=== PATIENT | female | born 2000 | race Caucasian/White ===

== ENCOUNTER 2020-10-11 10:11 | Outpatient (CLI) | payer OTHER, SELFPAY ==
[2020-10-11 11:04] LABS: Glucose Fasting Gestational 80 mg/dL (>/=95)
[2020-10-11 12:46] LABS: Glucose 1 Hour Gest 141 mg/dL (>/=180)
[2020-10-11 13:41] LABS: Glucose 2 Hour Gest 122 mg/dL (>/= 155)
[2020-10-11 14:40] LABS: Glucose 3 Hour Gest 99 mg/dL (>/=140)
== END 2020-10-11 10:12 | disposition home or self-care (01) ==
LOC: ANHLAB 10:17
PROVIDERS: Visit Provider Obstetrics & Gynecology
DX: Z13.1 Encounter for screening for diabetes mellitus (principal)
CPT/HCPCS: 36415; 82951; 82952

== ENCOUNTER 2020-12-09 09:35 | Outpatient (RCR) | payer OTHER, SELFPAY ==
[2020-12-03 15:19] VITALS: BP 106/66; PULSE 71
--- NOTE | ~2020-12-09 | US_ITS ---
EXAMINATION: US OB BPP wo non-stress DATE: 12/09/2020 10:54 INDICATION: Small for gestational age, third trimester TECHNIQUE: Real-time pelvic ultrasound was performed. The interpreting radiologist was not present fo r the study. COMPARISON: 12/03/2020 FINDINGS: There is a single living fetus in vertex presentation. The placenta is posterior. heart rate is 143 beats per minute (bpm). Biophysical profile performed by the technologist: breathing (30 sec sustained breathing in 30 minutes): 2 out of 2 movement (3 gross body movements in 30 minutes): 2 out of 2 tone (one episode of ilhdyvb-rwnfmwnck-ygztxvj limb movement): 2 out of 2 Amniotic fluid pocket (2 cm): 2 out of 2 Total score: 8 out of 8 IMPRESSION: 1. Single living fetus in vertex presentation. 2. Biophysical profile 8 out of 8. Reviewed, dictated and finalized at location A. LING STRATEGIST
--- NOTE | ~2020-12-09 | US_ITS ---
EXAMINATION: US OB limited w BPP DATE: 12/03/2020 15:05 CONTOUR BAND SAW OPERATOR VERTICAL INDICATION: Variable decelerations. Small for gestational age. TECHNIQUE: Real-time transabdominal obstetric ultrasound. FINDINGS: No prior studies for comparison. There is a single living fetus in vertex presentation. The placenta is posterior without placenta pr evia. cardiac activity and movement is noted with a heart rate of 146 beats per minute. A FI is normal measuring 17.2 cm (normal range for gestational age is 7.5-24.4 cm). Biophysical profile: breathin of 2 movement: 2 of 2 tone: 2 of 2 Amniotic flud pocket: 2 of 2 Total score: 8 of 8 IMPRESSION: 1. Single living intrauterine in vertex presentation. 2: Total biophysical profile score of 8/8. 3: Normal ARNOLD measures 17.2 cm. Reviewed, dictated and finalized at location A. OUR BAND SAW OPERATOR VERTICAL
[2020-12-09 10:27] VITALS: BP 113/72; PULSE 79
== END 2020-12-12 07:58 | disposition home or self-care (01) ==
LOC: ANHOBOP 09:35
PROVIDERS: Visit Provider Obstetrics & Gynecology
DX: O36.5930 Maternal care for other known or suspected poor fetal growth, third trimester, not applicable or unspecified (principal); Z3A.37 37 weeks gestation of pregnancy; Z3A.38 38 weeks gestation of pregnancy
CPT/HCPCS: 59025; 76815; 76819

== ENCOUNTER 2020-12-10 16:04 | Inpatient (IN) | payer OTHER, SELFPAY ==
[2020-12-10] VITALS (13 sets, daily range): BP systolic 99–125; BP diastolic 57–79; PULSE 67–81; TEMP 36.6; BMI 29.9
[2020-12-10 17:02] LABS: Basophils Absolute Auto 0.1 K/mm3 (0.0-0.1); Basophils Percent Auto 0.5 % (0.2-1.2); Eosinophils Absolute Auto 0.1 K/mm3 (0-0.3); Eosinophils Percent Auto 0.8 % (0-4.4); Hematocrit 36.1 % (37.0-47.0); Hemoglobin 11.6 g/dL (12.0-15.0); Immature Granulocyte Absolute 0.08 K/mm3 (0.00-0.031); Immature Granulocyte Percent A 0.8 % (0-0.5); Lymphocytes Absolute Auto 2.04 K/mm3 (0.9-3.2); Lymphocytes Percent Auto 19.2 % (18.3-44.2); Mean Corpuscular HGB Conc 32.1 g/dl (32-36); Mean Corpuscular Hemoglobin 28.6 pg (26-34); Mean Corpuscular Volume 89.1 fl (80-100); Mean Platelet Volume 10.4 fl (7.4-10.4); Monocytes Absolute Auto 0.7 K/mm3 (0.1-0.6); Monocytes Percent Auto 6.6 % (2.6-8.5); Neutrophils Absolute Auto 7.7 K/mm3 (1.3-6.7); Neutrophils Percent Auto 72.1 % (45.5-73.1); Platelet Count Result 245 k/mm3 (150-375); Red Blood Count 4.05 M/mm3 (4.2-5.4); Red Cell Distribution Width 12.9 % (11.5-14.5); White Blood Count 10.6 K/mm3 (4.5-10.0)
--- NOTE | 2020-12-10 17:10 | PM.IMHP ---
H&P: HPI History of Present Illness Date/Time: 12/10/20 17:10 Chief Complaint: induction of labor Narrative: Suzie Pinedo is a 20 yo @ 38.2wks (EVANS 12/[birth year]) who was admitted to L&D for induction of labor due to IUGR <10%ile. She has had regular and reassuring testing. She has had regular care. She reports good movement. No vaginal bleeding, contractions or leakage of fluid. complicated by: - IUGR <10%ile - HSV on ppx; no lesions noted - Elevated glucola; normal 3hr OGTT - Mild anemia on iron Review of Systems Constitutional: Constitutional: Denies chills and Denies fever(s) Eyes: Eyes: Denies change in vision Cardiovascular: Cardiovascular: Denies chest pain and Denies rapid heart rate Respiratory: Respiratory: Denies cough and Denies dyspnea Gastrointestinal: Gastrointestinal: Denies nausea and Denies vomiting Genitourinary: Genitourinary: Denies genital lesions and Denies vaginal discharge Neurologic: Denies headache(s) Psychiatric: Psychiatric: Denies anxiety and Denies depression [facility] Family History Family History Sibling Heart disease Asthma Mother Asthma Grandparent Cleft palate Social History Social History Smoking status: Never smoker Substance use: never Spiritual care concerns: No Meds Home Medications and Allergies Home Medications Medication Instructions Recorded Confirmed Type ferrous sulfate 12/03/20 History prenat.vits,juliann,vcq-pkwa-kdkqk 1 tablet PO DAILY 12/03/20 12/03/20 History [ #2] valacyclovir 500 mg PO Q12H 12/03/20 12/03/20 History Allergies Allergy/AdvReac Type Severity Reaction Status Date / Time amoxicillin Allergy Hives Verified 12/10/20 16:40 Penicillins Allergy Hives Verified 12/10/20 16:40 sulfamethoxazole Allergy Hives Verified 12/10/20 16:40 [From Bactrim] trimethoprim [From Bactrim] Allergy Hives Verified 12/10/20 16:40 Vital Signs Vital Signs - 24 hr 12/10/20 16:39 12/10/20 16:40 Pulse Rate 77 77 Blood Pressure 123/72 123/72 Exam Const: General: cooperative, healthy appearing, comfortable and no acute distress Resp: Effort & Inspection: normal respiratory effort and able to speak in complete sentences Cardio: Rate: regular rate GI: GI Palp: Yes Soft to palpation : Other: FHT's:120's/ mod allen/ + accels/ no decels - cat 1 TOCO: no ctx's noted Cervix: 3/80/-3 Membranes: intact Postion: cephalic Skin: General skin exam: normal color Neuro: General: patient oriented x3 Extrem: General: normal to inspection Psych: Appearance: grossly normal Affect: normal affect Attitude: cooperative H&P: Results Labs Labs: Short CBC 12/10/20 Range/Units 16:53 WBC 10.6 H (4.5-10.0) K/mm3 Hgb 11.6 L (12.0-15.0) g/dL Hct 36.1 L (37.0-47.0) % Plt Count 245 (150-375) k/mm3 Assessment and Plan Assessment and plan (1) IUGR (intrauterine growth restriction): Status: Acute (2) Encounter for induction of labor: Code(s): Z34.90 - Encounter for supervision of normal , unspecified, unspecified trimester Status: Acute Additional Plan - Admit to L&D for cervidil induction of labor due to IUGR - Continuous monitoring; FHTs cat 1 - Labs/US reviewed; GBS negative - Anesthesia consult PRN pain
--- NOTE | 2020-12-10 17:26 | WPDHPUPDATE1 ---
History and Physical Update Update Date/Time: 12/10/20 17:26 History and Physical has been reviewed, including an updated exam of the patient. There are NO changes in the patient's condition. Risks, benefits, and alternatives have been discussed and questions answered. Patient agrees to proceed with procedure.
[2020-12-10] MEDS: DINOPROSTONE 10 MG VAG INSERT VAGINAL (18:41)
--- NOTE | 2020-12-10 19:14 | WPDANESEPP ---
Anes - Eval Pre Procedure Procedure: labor epidural Date/Time: 12/10/20 19:14 Surgeon: eleni Preop Diagnosis: Abd pain with contractions Pre Op Diagnosis: Induction of Labor Patient Data Age: 20 Gender: F Height: 5 ft 9 in Weight: 92 kg Last Vital Signs Pulse 75 12/10/20 19:00 BP 104/65 12/10/20 19:00 Allergies Allergy/AdvReac Type Severity Reaction Status Date / Time amoxicillin Allergy Hives Verified 12/10/20 16:40 Penicillins Allergy Hives Verified 12/10/20 16:40 sulfamethoxazole Allergy Hives Verified 12/10/20 16:40 [From Bactrim] trimethoprim [From Bactrim] Allergy Hives Verified 12/10/20 16:40 Home Medications Medication Instructions Recorded Confirmed Type ferrous sulfate 12/03/20 History prenat.vits,juliann,zxp-ftcg-ojfhr 1 tablet PO DAILY 12/03/20 12/03/20 History [ #2] valacyclovir 500 mg PO Q12H 12/03/20 12/03/20 History Laboratory Tests 12/10/20 12/10/20 12/10/20 16:53 16:53 16:54 WBC 10.6 K/mm3 H K/mm3 (4.5-10.0) RBC 4.05 M/mm3 L M/mm3 (4.2-5.4) Hgb 11.6 g/dL L g/dL (12.0-15.0) Hct 36.1 % L % (37.0-47.0) MCV 89.1 fl fl (80-100) MCH 28.6 pg pg (26-34) MCHC 32.1 g/dl g/dl (32-36) RDW 12.9 % % (11.5-14.5) Plt Count 245 k/mm3 k/mm3 (150-375) MPV 10.4 fl fl (7.4-10.4) Immature Gran % (Auto) 0.8 % H % (0-0.5) Neut % (Auto) 72.1 % % (45.5-73.1) Lymph % (Auto) 19.2 % % (18.3-44.2) [place] % (Auto) 6.6 % % (2.6-8.5) Eos % (Auto) 0.8 % % (0-4.4) Baso % (Auto) 0.5 % % (0.2-1.2) Lymph # (Auto) 2.04 K/mm3 K/mm3 (0.9-3.2) [place] # (Auto) 0.7 K/mm3 H K/mm3 (0.1-0.6) Eos # (Auto) 0.1 K/mm3 K/mm3 (0-0.3) Baso # (Auto) 0.1 K/mm3 K/mm3 (0.0-0.1) Abs Immat Gran (auto) 0.08 K/mm3 H K/mm3 (0.00-0.031) Absolute Neuts (auto) 7.7 K/mm3 H K/mm3 (1.3-6.7) Absolute Nucleated RBC 0.0 K/mm3 K/mm3 (0.0-0.012) Nucleated RBC % 0.0 % % (0.0-0.2) RPR Pending Blood Type Pending Antibody Screen Pending Patient hx anesthesia problems: none Family hx anesthesia problems: none [facility] Past Medical History Medical History Anemia Anxiety and depression HSV infection Over weight Family History Family History Sibling Heart disease Asthma Mother Asthma Grandparent Cleft palate Social History Social History Smoking status: Never smoker Substance use: never Spiritual care concerns: No Exam Day of Procedure 12/10/20 19:14 Patient weight: overweight Airway: Mallampati scale class II Neurological: alert and oriented
[2020-12-10] MEDS: ACETAMINOPHEN 500 MG TABLET 1000 MG PO (23:55)
[2020-12-11] VITALS (119 sets, daily range): BP systolic 95–152; BP diastolic 45–103; PULSE 43–100; RESP 14–18; TEMP 36.1–37.5; O2SAT 92–100
--- NOTE | 2020-12-11 07:34 | PM.OBPNLAB ---
Pain Control Date/time seen: 12/11/20 07:34 Pain control: tolerating well Pelvic Exam Dilation (cm): 4 Effacement (%): 80 station: -2 Amniotic membrane status: Ruptured (AROM, clear 0730) Contractions Monitor mode: External Contraction pattern: Irregular Status status: Category l Comments: 130's/mod allen/ + accels/ no decels Assessment and Plan Assessment: induction ongoing Comments: - AROM, clear this exam @ 0730 - start pitocin augmentation - continuous monitoring; currently reassuring - anesthesia consult PRN pain
[2020-12-11] MEDS: OXYTOCIN 30 UNITS/NS 500 ML 30 UNITS/500 ML BAG 6 UNITS IV CONT (08:26)
[2020-12-11] MEDS: LACTATED RINGERS 1,000 ML 125 ML IV CONT ×2 (08:26→10:04)
--- NOTE | 2020-12-11 11:52 | SUR.OPER ---
1150- Vacuum on with pop off 1151- Vacuum reapplied with pop off 1151- Vacuum reapplied with pop off 1152- Vacuum reapplied and delivered.
[2020-12-11] MEDS: LACTATED RINGERS 1,000 ML 999 ML IV CONT (12:00)
[2020-12-11 12:08] LABS: Rapid Plasma Reagin Non-Reactive (NonReactive)
[2020-12-11] MEDS: CLINDAMYCIN 900 MG/D5W 50 ML 900 MG/50 ML PIGGYBACK 50 MG IVPB (12:09)
[2020-12-11] MEDS: GENTAMICIN SULFATE INJ 460 MG in DEXTROSE 5% 100 ML 100 MG IVPB (12:22)
--- NOTE | 2020-12-11 12:56 | PM.OBPRVD ---
OB - Delivery Note Procedure Delivery date: 12/11/20 Procedure: Procedures Operation Date: 12/11/20 11:30 <No data on this case meets the specified criteria> events: Labor Induction (due to IUGR) Intrapartal events: Extended Bradycardia Induction method: per pitocin protocol Delivery augmentation: rupture of membranes and pitocin Delivery monitor: external FHT and external uterine Route of delivery: Quantitative Blood Loss (ml): 240 Anesthesia type: Epidural Disposition: PACU Narrative: bradycardia was noted to the 60's for ~10 minutes when she was called stat c/s and returned to 90's for 3-4minutes. heart tones were obtained in the OR and were in the 110's. Gentamicin and clindamycin were ordered while epidural anesthesia was noted to be adequate. She was then prepped and draped in the normal sterile fashion. A time out was performed. A Pfannenstiel incision was made in the skin and carried down to the underlying fascia. The fascia was nicked on either side of the midline and the fascial incision was extended laterally and superiorly. The fascia was then elevated and the underlying rectus muscles were dissected off the fascia, superiorly. The rectus muscles were then in the midline and the peritoneum was entered bluntly. Once adequate exposure was obtained, a bladder blade and rich was placed within the abdomen. A low transverse incision was made on the lower uterine segment and clear fluid was noted. The occiput was attempted to be brought to the hysterotomy but was hard to flex. Kiwi vacuum was placed; 3 pop offs were noted but the head was then delivered, nuchal was reduced. The shoulder and body then followed without complications. The fetus had good tone. The cord was clamped and cut and the fetus was handed off to the awaiting pediatric nurse where spontaneous cry was heard. A segment of the cord was collected for cord gases. The remaining cord blood was collected for typing. With pitocin infusing, the placenta delivered with gentle traction on the cord without complications. The uterus was exteriorized and a clean lap was placed over it. The uterus was then cleared out of all clots and debris using a clean, moist lap. The hysterotomy was then repaired in a running, interlocking fashion using 0 Vicryl. A second layer imbricating suture was then made using 0 Vicryl. The hysterotomy was found to be hemostatic and good uterine tone was noted. The bilateral adnexa were examined and the right ovary was found to have a small cyst. The pelvis was cleared of all clots and fluid. The retractors were removed from the abdomen. The peritoneum, muscle, and fascia were examined and made hemostatic with bovie cautery. The fascia was then repaired using a 0 Vicryl suture in a running fashion. The subcutaneous tissue was then irrigated and made hemostatic with bovie cautery. The subcutaneous tissue was then reapproximated using 2-0 Vicryl. The skin was then closed using 4-0 Monocryl in a running subcuticular fashion and a clean, dry dressing was placed over. Sponge, lap, needle and instrument counts were correct at the end of the procedure x2. The patient tolerated the procedure well and was taken to recovery in a stable condition. Baby Date of : 12/11/20 Time of : 11:52 Weeks of gestation at delivery: 38 Infant gender: Male Weight (pounds): 6 Weight (ounces): 2 presentation: vertex position: Left Occiput Posterior Placenta delivery description: Expressed cord vessel description: 3 Vessels, Nuchal Cord and Loose score one minute: 7 score five minutes: 8
[2020-12-11] MEDS: OXYTOCIN 30 UNITS/NS 500 ML 30 UNITS/500 ML BAG 125 UNITS IV CONT (13:22)
[2020-12-11] MEDS: fentaNYL CITRATE INJ (*CRX) 100 MCG/2 ML VIAL 25 MCG IV PUSH (14:52)
--- NOTE | 2020-12-11 15:05 | PC.NURSE ---
PT arrived on unit via stretcher accompanied by fob and infant and taken to room 281. PT oriented to room and surrounding area. PT introductions made and plan of care discussed per post op c section, pain management, breast feeding daily care activities. PT transferred to bed via maxi air without difficulty. Welcome packet reviewed and discussed. PT verbalized understanding of such care.
[2020-12-11] MEDS: ACETAMINOPHEN 325 MG TABLET 650 MG PO (16:17)
[2020-12-11] MEDS: LANOLIN (LANSINOH) 7.5 GM CREAM 1 APPLIC TOPICAL (16:17)
[2020-12-11] MEDS: DOCUSATE SODIUM 100 MG CAPSULE PO (16:18)
[2020-12-11] MEDS: KETOROLAC 30 MG/ML VIAL (*BKC) IV PUSH ×2 (16:18→22:18)
[2020-12-11] MEDS: TETANUS,DIPHTHERIA,AC PERTUSSIS ADULT (0.5 ML) BOOSTRIX IM (22:41)
[2020-12-12] MEDS: KETOROLAC 30 MG/ML VIAL (*BKC) IV PUSH (04:12)
[2020-12-12] MEDS: SIMETHICONE 80 MG TAB.CHEW PO ×4 (04:14→23:00)
[2020-12-12 04:25] VITALS: BP 116/69; PULSE 85; RESP 16; TEMP 37.1; O2SAT 96
[2020-12-12 05:00] LABS: Basophils Percent Auto 0.3 % (0.2-1.2); Eosinophils Absolute Auto 0.1 K/mm3 (0-0.3); Eosinophils Percent Auto 0.4 % (0-4.4); Hematocrit 32.1 % (37.0-47.0); Hemoglobin 10.4 g/dL (12.0-15.0); Immature Granulocyte Absolute 0.11 K/mm3 (0.00-0.031); Immature Granulocyte Percent A 0.7 % (0-0.5); Lymphocytes Absolute Auto 1.81 K/mm3 (0.9-3.2); Lymphocytes Percent Auto 11.5 % (18.3-44.2); Mean Corpuscular HGB Conc 32.4 g/dl (32-36); Mean Corpuscular Hemoglobin 28.3 pg (26-34); Mean Corpuscular Volume 87.5 fl (80-100); Mean Platelet Volume 10.6 fl (7.4-10.4); Monocytes Percent Auto 6.2 % (2.6-8.5); Neutrophils Absolute Auto 12.8 K/mm3 (1.3-6.7); Neutrophils Percent Auto 80.9 % (45.5-73.1); Platelet Count Result 209 k/mm3 (150-375); Red Blood Count 3.67 M/mm3 (4.2-5.4); Red Cell Distribution Width 12.8 % (11.5-14.5); White Blood Count 15.8 K/mm3 (4.5-10.0)
--- NOTE | 2020-12-12 08:30 | PC.NURSE ---
PT introductions made and plan of care discussed per post op c section, pain management, breast feeding, daily care activities. PT verbalized understanding of such care.
[2020-12-12 08:45] VITALS: BP 104/70; PULSE 83; RESP 18; TEMP 36.6; O2SAT 97
--- NOTE | 2020-12-12 09:27 | WPDANLDPN2 ---
Anes-Prog Note L&D Date/Time: 12/12/20 09:27 Comfortable throughout: labor and section Neuraxial method: epidural Epidural/Spinal procedure site: clean & non-tender Neuro status: Neuro function grossly intact. Cardiovascular status: normal Respiratory status: normal Airway patency: baseline Mental status: baseline Post-Op hydration status: normal Vital Signs: Last Vital Signs Temp 37.1 C 12/12/20 04:25 Pulse 85 12/12/20 04:25 Resp 16 12/12/20 04:25 BP 116/69 12/12/20 04:25 Pulse Ox 96 12/12/20 04:25 Pain score (VAS): 4 I/O: Intake & Output 12/11/20 12/12/20 12/12/20 23:59 07:59 15:59 Intake Total 1840 Output Total 1000 1800 Balance -1000 40 Post-procedural complaints: none Patient feedback: Patient satisfied with anesthetic care.
--- NOTE | 2020-12-12 09:29 | WPDANLDNPN2 ---
Anes-Prog Note L&D-Neuraxial Date/Time: 12/12/20 09:29 Neuraxial medications: epidural PF morphine Opiod-related complaints: none Patient feedback: Patient satisfied with post-operative pain management.
[2020-12-12] MEDS: DOCUSATE SODIUM 100 MG CAPSULE PO ×2 (09:41→16:54)
[2020-12-12] MEDS: ACETAMINOPHEN 325 MG TABLET 650 MG PO ×2 (09:41→16:55)
[2020-12-12] MEDS: MULTIVIT/MIN/PREN/FOL AC/IRON TABLET 1 TAB PO (09:41)
[2020-12-12] MEDS: IBUPROFEN 600 MG TABLET PO ×3 (09:45→23:00)
--- NOTE | 2020-12-12 12:35 | PM.OBPNVD ---
OB - PN: Subj Subjective Date/time seen: 12/12/20 12:32 POD#1 Suzie reports doing well today. She states her pain is well controlled. Her bleeding is light. She has tolerating regular diet. She has voided and passed gas. She has ambulated. She is breast feeding. She would like her son circumcised. She denies CP, MARTINEZ, fever, chills, N/V, SOB, dizziness or palpitations. OB - PN: Obj Data Labs CBC & Chem 7: 12/12/20 04:11 Labs: Laboratory Results - last 24 hr 12/12/20 04:11 WBC 15.8 H RBC 3.67 L Hgb 10.4 L Hct 32.1 L MCV 87.5 MCH 28.3 MCHC 32.4 RDW 12.8 Plt Count 209 MPV 10.6 H Immature Gran % (Auto) 0.7 H Neut % (Auto) 80.9 H Lymph % (Auto) 11.5 L [place] % (Auto) 6.2 Eos % (Auto) 0.4 Baso % (Auto) 0.3 Lymph # (Auto) 1.81 [place] # (Auto) 1.0 H Eos # (Auto) 0.1 Baso # (Auto) 0.0 Abs Immat Gran (auto) 0.11 H Absolute Neuts (auto) 12.8 H Absolute Nucleated RBC 0.0 Nucleated RBC % 0.0 OB - PN A/P Assessment and Plan (1) bradycardia during labor: Status: Acute (2) S/P section: Code(s): Z98.891 - History of uterine scar from previous surgery Status: Acute Plan day: 1 Plan: routine care Comments: - plan to circumcision tomorrow - meeting all post-op milestones - possible discharge home tomorrow Time Spent With Patient Time: Total time spent is greater than 50% in coordination of care (as documented) at patient's floor/unit and/or counseling patient: Review of Systems Review of Systems: All systems reviewed & are unremarkable except as noted in HPI and below (HPI) Exam Const: General: cooperative, healthy appearing, comfortable and no acute distress Resp: Effort & Inspection: normal respiratory effort and able to speak in complete sentences Auscultation: clear to auscultation bilaterally Cardio: Rate: regular rate GI: Inspection: normal to inspection and incision (pfannenstiel incision covered w/ clean dressing) GI Palp: Yes abdominal tenderness (appropriate) and Yes Soft to palpation : Other: fundus firm below umbilicus Skin: General skin exam: normal color Neuro: General: patient oriented x3 Extrem: General: normal to inspection Psych: Appearance: grossly normal Affect: normal affect Attitude: cooperative
[2020-12-12 20:00] VITALS: BP 114/55; PULSE 95; RESP 18; TEMP 37.1; O2SAT 95
[2020-12-12] MEDS: HYDROcodone/acetaminophen (*CRX) 10-325 MG TABLET 1 TAB PO (23:00)
[2020-12-13] MEDS: DOCUSATE SODIUM 100 MG CAPSULE PO ×2 (07:44→17:22)
[2020-12-13] MEDS: HYDROcodone/acetaminophen (*CRX) 5-325 MG TABLET 1 TAB PO ×3 (07:45→19:10)
[2020-12-13] MEDS: IBUPROFEN 600 MG TABLET PO ×3 (07:45→21:35)
[2020-12-13] MEDS: SIMETHICONE 80 MG TAB.CHEW PO (07:45)
[2020-12-13] MEDS: MULTIVIT/MIN/PREN/FOL AC/IRON TABLET 1 TAB PO (07:45)
[2020-12-13 07:50] VITALS: PULSE 87; RESP 16; O2SAT 97
[2020-12-13 08:30] VITALS: BP 116/62; PULSE 87; RESP 16; TEMP 37; O2SAT 97
--- NOTE | 2020-12-13 11:07 | PC.NURSE ---
Consulted with patient, reviewed feeding cues, frequencies, duration of feedings, feeding elimination flow sheet, and signs of adequate intake. Demonstrated stimulation techniques to wake for feeding. mom latched infant to breast. Reviewed positioning/alignment, holding breast and asymmetrical latch on. Infant was able to latch correctly. Infant nursed eagerly, with steady draws and occasional swallowing noted. Reviewed signs of a correct latch, effective nursing and suck swallow ratio. was able to maintain latch without discomfort to mother. Nipple care reviewed. Instructed mother to call out for RN assistance if she is unable to latch for feeding or she has discomfort with nursing. Instructed feeding should be initiated three hours from start of last feeding or if feeding cues are noted before. Mother voiced understanding of information shared.
--- NOTE | 2020-12-13 15:16 | PC.NURSE ---
Breast pump provided due to being sleepy at the breast and mom choosing to feed formula and pump for this feeding. Instructions given on breast pump care and usage, pumping schedule, nipple care, and collection and storage of breast milk. Encouraged [id number], breast massage and manual expression to stimulate supply. Assessed patient for correct flange size, placement and draw. Patient verbalizes and demonstrates understanding of instructions.
[2020-12-13 20:00] VITALS: BP 104/69; PULSE 98; RESP 18; TEMP 36.7; O2SAT 100
[2020-12-14] MEDS: HYDROcodone/acetaminophen (*CRX) 5-325 MG TABLET 1 TAB PO ×4 (02:14→15:01)
[2020-12-14] MEDS: SIMETHICONE 80 MG TAB.CHEW PO (10:01)
[2020-12-14] MEDS: DOCUSATE SODIUM 100 MG CAPSULE PO (10:01)
[2020-12-14] MEDS: MULTIVIT/MIN/PREN/FOL AC/IRON TABLET 1 TAB PO (10:01)
[2020-12-14 10:02] VITALS: BP 117/75; PULSE 108; RESP 16; TEMP 37.2; O2SAT 97
[2020-12-14] MEDS: IBUPROFEN 600 MG TABLET PO (10:02)
--- NOTE | 2020-12-17 09:55 | PM.OBDSVD ---
DS: Admitting Diagnosis Admitting Diagnosis Admitting Diagnosis: induction of labor DS: Discharge Diagnosis Discharge Diagnosis (1) S/P section: Code(s): Z98.891 - History of uterine scar from previous surgery Status: Acute (2) bradycardia during labor: Status: Acute (3) Encounter for induction of labor: Code(s): Z34.90 - Encounter for supervision of normal , unspecified, unspecified trimester Status: Acute (4) IUGR (intrauterine growth restriction): Status: Acute OB - DS: Summary OB Procedures : NST and Ultrasound OB Procedures Intrapartum: low cervical, transverse OB Procedures: : None Peripartum Data Delivery Method: Section Procedures: Procedures Operation Date: 12/11/20 11:30 Actual Procedures Side Surgeon p Section Arina Crews MD complications: none 1: Gender: Male Disposition of : home Status at Discharge Functional status at discharge: independent ambulation Overall status at discharge: patient is back to baseline Time Spent with Patient Time attestation: Total time spent providing and/or coordinating discharge services: Time spent: Less than 30 minutes Exam Const: General: cooperative, healthy appearing, comfortable and no acute distress Resp: Effort & Inspection: normal respiratory effort and able to speak in complete sentences Auscultation: clear to auscultation bilaterally Cardio: Rate: regular rate GI: Inspection: normal to inspection and incision (pfannenstiel incision covered w/ clean dressing) GI Palp: Yes abdominal tenderness (appropriate) and Yes Soft to palpation Auscultation: normal bowel sounds : Other: fundus firm at umbilicus Skin: General skin exam: normal color Neuro: General: patient oriented x3 Extrem: General: normal to inspection Psych: Appearance: grossly normal Affect: normal affect Attitude: cooperative DS: Data Data Completed and Pending Completed studies during hospitalization: Pending at discharge 12/11/20 11:53 Surgical [PTH] Routine Discharge Plan Discharge Attending physician on discharge: Arina Crews Discharging Clinician: Arina Crews Anticipated Discharge Date/Time: 12/14/20 12:00 Patient Disposition: Home, Self-Care Activity: may shower, follow weight bearing status and pelvic rest Diet: as tolerated and regular Discharge Instructions: Education: Mom and Baby Guide Given to: Mother Follow-Up: Call your delivering provider's office for an appointment to be seen in: 2 Weeks Mom and baby should come to the [facility] for the follow-up appointment. Appointment Date/Time: December 16, 2020 at 11:00 am Call [phone] if you are unable to keep your appointment time. BREAST CARE: * Wear a snug supportive bra. * For engorgement discomfort: Breast Feeding: * Apply warm moist washcloths * Express milk as needed to relieve engorgement * Wear loose clothing Bottle Feeding: * May apply ice packs * For sore nipples: * Identify correct latch-on * Apply warm moist washcloths before and after nursing * Air dry nipples after nursing * May apply Lansinoh cream to nipples ABDOMINAL INCISION: (if applicable) * Allow incision to air dry * Do NOT use lotions for powders on your incision * When showering, allow soap and water to run over the incision, but do not wash incision PERINEAL CARE: * Until bleeding stops, use your gera bottle after urinating * Change your pad frequently throughout the day * You may take sitz baths several times a day (fill your bathtub with warm water and soak for 20 minutes.) Do NOT bathe in the water * No tub baths until seen by your physician - You may shower ACTIVITY: * Rest as much as possible. * Do
== END 2020-12-14 16:53 | disposition home or self-care (01) | DRG 540 ==
LOC: ANHLDR 12-11 12:57 → ANHOB2 12-11 15:12
PROVIDERS: Admitting Provider Obstetrics & Gynecology; Visit Provider Obstetrics & Gynecology
PROC: 10D00Z1 Extraction of Products of Conception, Low, Open Approach (ICD-10-PCS; CPT 59514; principal; 2020-12-11 11:30)
DX: O36.5930 Maternal care for other known or suspected poor fetal growth, third trimester, not applicable or unspecified (principal); O98.52 Other viral diseases complicating childbirth; B00.9 Herpesviral infection, unspecified; O99.02 Anemia complicating childbirth; D64.9 Anemia, unspecified; O69.81X0 Labor and delivery complicated by cord around neck, without compression, not applicable or unspecified; O34.83 Maternal care for other abnormalities of pelvic organs, third trimester; N83.201 Unspecified ovarian cyst, right side; O76 Abnormality in fetal heart rate and rhythm complicating labor and delivery; Z3A.38 38 weeks gestation of pregnancy; Z37.0 Single live birth
CPT/HCPCS: 36415; 85025; 86592; 86850; 86900; 86901; 88307; 90715; A9270; J0131; J1580; J1885; J2274; J2590; J2795; J3010; J7120